=== PATIENT | male | born 1965 | race Caucasian/White ===

== ENCOUNTER 2019-12-05 07:40 | Day surgery (SDC) | payer OTHER, SELFPAY ==
[2019-12-04 13:17] VITALS: BMI 23.1
[2019-12-05] VITALS (8 sets, daily range): BP systolic 114–150; BP diastolic 83–98; PULSE 57–100; RESP 14–20; TEMP 36.4–36.9; O2SAT 97–100
--- NOTE | 2019-12-05 07:59 | PM.HPUD ---
H&P update H&P Update: DATE OF SURGERY/PROCEDURE: 12/05/19 DATE H&P PERFORMED: 11/30/19 H&P UPDATE INFORMATION: H&P completed within last 30 days and No changes to prior documentation PLANNED PROCEDURE: Operation Date: 12/05/19 09:10 Proposed Procedures p Laparoscopic Inguinal Hernia Repair w/Mesh poss open(Left) - Brandyn Moreno MD Full H&P Perinent History: Medical/Surgical History: Medical History (Updated 11/30/19 @ 09:27 by Brandyn Moreno MD) Left inguinal hernia (Acute) Family History: Family History (Updated 11/30/19 @ 08:56 by Jewels Hand LPN) Father Cancer prostate and skin Denies family history of Anesthesia complication Bleeding disorder Social History: Social History Smoking and tobacco status: never smoked Alcohol intake: never Household members: spouse Marital status: Current occupational status: employed Current occupation: Self employed History of recent travel: No
[2019-12-05] MEDS: sodium chloride 0.9% 1,000 ML 30 ML IV (08:27)
--- NOTE | 2019-12-05 08:58 | ANES.PREANE2 ---
Pre-Anesthetic Assessment Pre-Anesthetic Assessment: Height/Weight: Height 1.73 m Weight 68.946 kg Temp Pulse Resp BP Pulse Ox 98.4 F 100 18 150/83 97 12/05/19 08:10 12/05/19 08:10 12/05/19 08:10 12/05/19 08:10 12/05/19 08:10 Preop Diagnosis: Left inguinal hernia Proposed Procedure: Operation Date: 12/05/19 09:10 Proposed Procedures p Laparoscopic Inguinal Hernia Repair w/Mesh poss open(Left) - Brandyn Moreno MD Last intake: Intake Last Liquid Date 12/04/19 Last Liquid Time 21:30 Last Solid Date 12/04/19 Last Solid Time 21:30 Exam: Pre-Anes Outpt Exam: alert, oriented x 3, clear to auscultation bilaterally and regular rate & rhythm Airway: Submandibular: WNL Cervical ROM: WNL MP: 1 Anesthetic Plan: ASA status: II Anesthesia: General Meds/Allergies Current Medications: Current Medications Generic Name Dose Route Start Last Admin Trade Name Freq PRN Reason Stop Dose Admin Sodium Chloride 1,000 mls @ 30 ml s/hr 12/05/19 08:15 12/05/19 08:27 Sodium Chloride 0.9% IV 12/06/19 08:14 30 mls/hr .Q24H ROSHNI Administration PFSH Anesthesia PFSH: Social History Smoking and tobacco status: never smoked Alcohol intake: never Household members: spouse Marital status: Current occupational status: employed Current occupation: Self employed History of recent travel: No Data Anesthesia Cardiac Studies: No Data to Display
--- NOTE | 2019-12-05 10:10 | PM.OP ---
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 After IV antibiotic was administered, the abdomen was prepped and draped in a sterile manner. Using a 15 blade, a 1.0 cm transverse incision was made infraumbilically on the left side. Subcutaneous tissue was divided using electrocautery and the anterior rectus sheath divided using an 11 blade. The rectus muscle was retracted laterally and the extraperitoneal space identified. A 11 mm port was placed and 12 mm of pneumoperitoneum was created. A 10 mm 30? scope was introduced and the retrorectus space was opened using the camera up to the pubic symphysis and 5 mm ports were placed in the midline, one 2-fingerbreadths above the pubic symphysis and the other midway between these two ports under direct visualization. Blunt dissection was carried out to open up the tissue in the midline and to the pubic symphysis, which was identified. The dissection was then carried laterally where the iliopubic tract was identified. There was no femoral, or obturator hernia noted. There was a direct hernia which was reduced. The inferior epigastric artery was identified and dissection was carried posterior to it and laterally, the space was opened up to the level of the umbilicus superior to the anterior superior iliac spine. I then proceeded to dissect out the spermatic cord and there was a lipoma of the spermatic cord which was excised.. 15 x 10cm Ultrapro mesh was rolled and introduced through the 10 mm port and then rolled laterally and apposed well against the abdominal wall to cover the myopectineal orifice completely. The mesh was held in place with Securestraps. 10 Cc of 0.5% Marcaine was infiltrated into the preperitoneal space. The extraperitoneal space was desufflated under direct visualization to ensure no slippage of hernial sac under the mesh. All ports were removed, the anterior rectus fascia at the infraumbilical port closed using figure of eight 0 Vicryl sutures, subcutaneous tissue approximated using 3-0 Vicryl sutures and skin at all three port sites were closed using running subcuticular 4-0 Monocryl sutures and Dermabond. 10 mL of 0.5% Marcaine was infiltrated at the port sites. The patient was stable throughout the procedure.
== END 2019-12-05 11:34 | disposition home or self-care (01) ==
PROVIDERS: Visit Provider Surgery
PROC: (CPT 49650; principal; 2019-12-05 09:10)
DX: K40.90 Unilateral inguinal hernia, without obstruction or gangrene, not specified as recurrent (principal); D17.6 Benign lipomatous neoplasm of spermatic cord
CPT/HCPCS: 49650; 55520; 12345; J0690; J1885; J2001; J2250; J2405; J2704; J2710; J3010; J3490; J7030